=== PATIENT | female | born 1980 | race Caucasian/White ===

== ENCOUNTER 2020-01-29 18:30 | Emergency (ER) | payer MEDICAID ==
[~2020-01-29] VITALS: Ht 167.6 cm; Wt 113.0 kg
[~2020-01-29 18:30] MED LIST: DOCU-150 PO; METF-414 PO
[2020-01-29 23:33] LABS: CHLORIDE 105 mEq/L (98-107)
[2020-01-29 23:47] LABS: BASOPHILS % 0.2 % (0.0-2.0); EOSINOPHILS % 0.5 % (0.0-5.0); HEMATOCRIT. 45.1 % (36.0-48.0); HEMOGLOBIN. 15.5 g/dL (12.0-16.0); LYMPHOCYTES % 37.1 % (20.0-50.0); MEAN CORPUSCULAR HEMOGLOBIN 29.1 pg (28.0-32.0); MEAN CORPUSCULAR VOLUME 84.5 fL (81.0-99.0); MONOCYTES % 5.1 % (2.0-8.0); NEUTROPHILS % 57.1 % (40.0-76.0); PLATELET 182 x1000/uL (130-400); RED BLOOD CELL COUNT 5.34 mill/uL (4.2-5.4); RED CELL DISTRIBUTION WIDTH 13.2 % (11.6-14.6)
[2020-01-30 00:30] VITALS: BP 148/67
== END 2020-01-30 01:05 | disposition home or self-care (01) ==
LOC: ER 18:30
DX: S90.861A Insect bite (nonvenomous), right foot, initial encounter (principal); E11.9 Type 2 diabetes mellitus without complications; W57.XXXA Bitten or stung by nonvenomous insect and other nonvenomous arthropods, initial encounter; Y93.89 Activity, other specified; Y92.89 Other specified places as the place of occurrence of the external cause; Y99.8 Other external cause status
CPT/HCPCS: 36415; 73630; 80053; 85025; 99284

== ENCOUNTER 2021-10-07 17:10 | Emergency (ER) | payer MEDICAID, OTHER ==
[~2021-10-07] VITALS: Ht 154.9 cm; Wt 104.0 kg
[~2021-10-07 17:10] MED LIST changes: +BLOO-340 HHN; +INSU100I28 SQ; +LEVO750T46 MT; -METF-414 PO
[2021-10-07] MEDS ORDERED: ONDANSETRON 4MG ODT PO STA (17:19)
[2021-10-07] MEDS ORDERED: MAGNESIUM/ALUMINUM HYDROXIDE/SIMETHICONE 30ML UDC PO STA (17:19)
[2021-10-07] MEDS ORDERED: LACTATED RINGERS 1,000 ML IV SCH ×2 (18:00)
[2021-10-07 18:26] LABS: BASOPHILS % 0.3 % (0.0-2.0); EOSINOPHILS % 0.2 % (0.0-5.0); HEMATOCRIT. 33.5 % (36.0-48.0); HEMOGLOBIN. 10.8 g/dL (12.0-16.0); MEAN CORPUSCULAR HEMOGLOBIN 25.8 pg (28.0-32.0); MEAN PLATELET VOLUME 8.1 fl (7.4-10.4); MONOCYTES % 4.8 % (2.0-8.0); NEUTROPHILS % 76.7 % (40.0-76.0); PLATELET 282 x1000/uL (130-400); RED BLOOD CELL COUNT 4.18 mill/uL (4.2-5.4); RED CELL DISTRIBUTION WIDTH 14.6 % (11.6-14.6)
[2021-10-07 18:31] LABS: CHLORIDE 91 mEq/L (98-107)
[2021-10-07 18:39] LABS: BETA HYDROXYBUTYRATE 0.1 mMol/L (0.0-0.3)
[2021-10-07 18:43] LABS: HCG SCREEN NEGATIVE
[2021-10-07 18:50] LABS: CLARITY URINE CLEAR (CLEAR); COLOR URINE YELLOW (YELLOW); KETONES URINE NEGATIVE (NEGATIVE); LEUKOCYTE ESTERASE URINE TRACE (NEGATIVE); NITRITE URINE NEGATIVE (NEGATIVE); OCCULT BLOOD URINE 2+ (NEGATIVE); PH URINE 8.5 (4.5-8.0); PROTEIN URINE 1+ (NEGATIVE); SPECIFIC GRAVITY URINE 1.025 (1.005-1.030)
[2021-10-07] MEDS ORDERED: CEFTRIAXONE 1 G PREMIX 50 ML IV ONE (22:00)
[2021-10-08 01:30] VITALS: BP 145/88
== END 2021-10-08 01:39 | disposition short-term general hospital (02) ==
LOC: ER 17:10
DX: N10 Acute pyelonephritis (principal); E11.65 Type 2 diabetes mellitus with hyperglycemia; R00.2 Palpitations; D50.9 Iron deficiency anemia, unspecified; E87.1 Hypo-osmolality and hyponatremia; Z79.4 Long term (current) use of insulin
CPT/HCPCS: 36415; 74176; 80053; 81003; 81025; 82010; 82962; 83690; 84484; 84703; 85025; 87040; 87077; 87086; 87186; 93005; 96361; 96365; 99285; J0696; Q0162

== ENCOUNTER 2024-06-12 20:31 | Emergency (ER) | payer OTHER ==
[~2024-06-12] VITALS: Ht 172.7 cm; Wt 107.0 kg
[~2024-06-12 20:31] MED LIST changes: -LEVO750T46 MT; +LEVO750T68 MT
[2024-06-12 20:36] VITALS: O2SAT 100
[2024-06-12 20:50] VITALS: BP 151/82; PULSE 98; RESP 18; TEMP 98.4; O2SAT 100
[2024-06-12 23:12] LABS: BASOPHILS % 0.9 % (0.0-2.0); EOSINOPHILS % 1.5 % (0.0-5.0); HEMATOCRIT. 38.6 % (36.0-48.0); HEMOGLOBIN. 12.8 g/dL (12.0-16.0); LYMPHOCYTES % 16.6 % (20.0-50.0); MEAN CORPUSCULAR HEMOGLOBIN 28.8 pg (28.0-32.0); MEAN CORPUSCULAR HGB CONC 33.2 g/dL (31.0-37.0); MEAN CORPUSCULAR VOLUME 86.7 fL (81.0-99.0); MEAN PLATELET VOLUME 9.2 fl (7.4-10.4); MONOCYTES % 1.8 % (2.0-8.0); NEUTROPHILS % 79.2 % (40.0-76.0); RED BLOOD CELL COUNT 4.45 mill/uL (4.2-5.4); RED CELL DISTRIBUTION WIDTH 16.8 % (11.6-14.6); WHITE BLOOD COUNT 19.3 x1000/uL (4.5-11.0)
[2024-06-12 23:18] LABS: CARBON DIOXIDE 20 mEq/L (21-32); CHLORIDE 108 mEq/L (98-107); POTASSIUM 3.9 mEq/L (3.5-5.1); SODIUM 136 mEq/L (136-145)
[2024-06-12 23:19] LABS: CALCIUM 9.5 mg/dL (8.7-10.4); DIFFERENTIAL COMMENT 1
[2024-06-12 23:24] LABS: CREATININE 0.9 mg/dL (0.6-1.0); GLUCOSE 262 mg/dL (70-105); UREA NITROGEN BLOOD 13 mg/dL (9-23)
[2024-06-12 23:30] LABS: HCG SCREEN NEGATIVE
[2024-06-13] MEDS ORDERED: MELO-105 MT (00:09)
[2024-06-13 00:12] LABS: TROPONIN I HIGH SENSITIVITY 35 ng/L (3.0-34)
[2024-06-13 07:09] LABS: PLATELET 1284 x1000/uL (130-400)
== END 2024-06-13 00:32 | disposition home or self-care (01) ==
LOC: ER 20:31
DX: R07.89 Other chest pain (principal); M25.511 Pain in right shoulder; E11.9 Type 2 diabetes mellitus without complications; Z79.4 Long term (current) use of insulin; Z98.890 Other specified postprocedural states
CPT/HCPCS: 36415; 71045; 80048; 84484; 84703; 85025; 93005; 99285